=== PATIENT | female | born 1960 | race Caucasian/White ===

== ENCOUNTER 2016-09-07 08:24 | Emergency (ER) | payer BC ==
[2016-09-07 10:19] LABS: HEMATOCRIT 41.1 % (36.0-48.0); HEMOGLOBIN 13.4 g/dL (12-16); MCH 30.7 pg (26.0-34.0); MCHC 32.6 g/dL (31.0-37.0); MCV 94.3 fL (80.0-100.0); MEAN PLATELET VOLUME 10.3 fL (7.4-10.4); PLATELET COUNT 67 10x3/uL (130-400); RBC 4.36 10x6/uL (4.00-5.40); RDW 20.3 % (11.5-14.5); WBC 23.6 10x3/uL (4.8-10.8)
[2016-09-07 10:40] LABS: LYMPHOCYTES 2 % (15-50); MONOCYTES 2 % (2-11); NEUTROPHILS 83 % (40-80); PLATELET ESTIMATE DECREASED; PLATELET MORPHOLOGY GIANT PLTS PRESENT
[2016-09-07 10:46] LABS: ALBUMIN 1.8 g/dL (3.4-5.0); ANION GAP 14.1 mmol/L (8-16); BILIRUBIN - TOTAL 8.03 mg/dL (0.2-1.3); CALCIUM 8.9 mg/dL (8.5-10.1); CARBON DIOXIDE 27.6 mmol/L (21.0-32.0); CREATININE - SERUM 0.9 mg/dL (0.6-1.3); PHOSPHOROUS 3.4 mg/dL (2.5-4.9); POTASSIUM - SERUM 4.7 mmol/L (3.5-5.1); PROTEIN - SERUM 6.9 g/dL (6.4-8.2)
[2016-09-07 11:41] LABS: APPEARANCE HAZY (CLEAR); BILIRUBIN 3+ (NEGATIVE); COLOR DK YELLOW (YELLOW); GLUCOSE NEGATIVE (NEGATIVE); KETONE NEGATIVE (NEGATIVE); LEUKOCYTE ESTERASE TRACE (NEGATIVE); NITRITE NEGATIVE (NEGATIVE); PROTEIN 1+ mg/dL (NEGATIVE); UROBILINOGEN NORMAL (NORMAL)
[2016-09-07 11:43] LABS: BACTERIA MODERATE /hpf (NONE SEEN); EPITHELIAL CELLS 0-5 /hpf (0-5); GRANULAR CAST OCC /lpf (NONE SEEN); RED CELLS - URINE 0-5 /hpf (0-5); WHITE CELLS - URINE 0-5 /hpf (0-5)
== END 2016-09-07 15:13 | disposition home or self-care (01) ==
LOC: D.ER 08:24
PROVIDERS: Emergency Medicine; Nurse Practitioner Family
DX: R11.2 Nausea with vomiting, unspecified (principal); J18.9 Pneumonia, unspecified organism; R79.89 Other specified abnormal findings of blood chemistry; R17 Unspecified jaundice; C25.9 Malignant neoplasm of pancreas, unspecified; I10 Essential (primary) hypertension